=== PATIENT | female | born 1980 | race American Indian/Alaskan Native ===

== ENCOUNTER 2018-03-17 07:31 | Emergency (ER) | payer OTHER ==
[2018-03-17 07:36] VITALS: TEMP 98.2; O2SAT 100
--- NOTE | 2018-03-17 07:53 | C.PDOC ---
History Of Present Illness 37-year-old female, presents to the emergency department with complaints of chest soreness, that is constant and worse with movement and deep breaths. patient states she has a Hx of "tachycardia" and is on Labetalol. 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 She denies cough, fever, palpitations, shortness of breath or any other associated symptoms. No other complaints at this time. Time Seen by Provider: 03/17/18 07:43 Chief Complaint (Nursing): Chest Pain History Per: Patient History/Exam Limitations: no limitations Current Symptoms Are (Timing): Still Present Past Medical History Reviewed: Historical Data, Nursing Documentation, Vital Signs Vital Signs: Last Vital Signs Temp 98.2 F 03/17/18 07:35 Pulse 82 03/17/18 09:48 Resp 16 03/17/18 09:48 BP 127/78 03/17/18 09:48 Pulse Ox 100 03/17/18 09:48 Family History: States: No Known Family Hx Physical Exam - Physical Exam Appears: Non-toxic, No Acute Distress Skin: Warm, Dry, No Rash Head: Normacephalic Eye(s): bilateral: PERRL Nose: Normal Oral Mucosa: Moist Lips: Normal Appearing Neck: Normal ROM Chest: Symmetrical Cardiovascular: Rhythm Irregular (Occasional), No Murmur Respiratory: Normal Breath Sounds, No Accessory Muscle Use Extremity: Normal ROM, No Deformity, No Swelling ED Course And Treatment - Laboratory Results Result Diagrams: 03/17/18 08:15 03/17/18 08:15 O2 Sat by Pulse Oximetry: 100 (RA) Pulse Ox Interpretation: Normal Disposition Counseled Patient/Family Regarding: Studies Performed, Diagnosis, Need For Followup - Disposition Referrals: [facility] at [facility] [Outside] Kwaku Oseguera MD [Staff Provider] - Disposition: HOME/ ROUTINE Disposition Time: 09:30 Condition: STABLE Additional Instructions: 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 I have reviewed the chart and agree that the record accurately reflects my personal performance of the history, physical exam, medical decision making, and the department course for this patient. I have also personally directed, reviewed, and agree with the discharge instructions and disposition.
[2018-03-17 08:30] LABS: BASO # 0.1 K/uL (0.0-0.2); BASO % 2.4 % (0.0-2.0); EOS # 0.2 K/uL (0.0-0.7); EOS % 4.4 % (0.0-4.0); HEMOGLOBIN 10.5 g/dL (11.0-16.0); LYMPH # 1.3 K/uL (1.0-4.3); LYMPH % 37.2 % (20.0-40.0); MEAN CELL VOLUME 69.9 fL (81.0-99.0); MEAN CORPUSCULAR HEMOGLOBIN 22.6 pg (27.0-31.0); MEAN CORPUSCULAR HGB CONC 32.3 g/dL (33.0-37.0); MEAN PLATELET VOLUME 11.9 fL (7.2-11.7); MONO # 0.5 K/uL (0.0-0.8); MONO % 12.9 % (0.0-10.0); NEUT # 1.5 K/uL (1.8-7.0); NEUT % 43.1 % (50.0-75.0); NRBC % 0.1 % (0.0-2.0); RBC 4.65 Mil/uL (3.80-5.20); RED CELL DISTRIBUTION WIDTH 14.5 % (11.5-14.5); WHITE BLOOD COUNT 3.5 K/uL (4.8-10.8)
[2018-03-17 08:38] LABS: ALB/GLOB RATIO 1.3 (1.0-2.1); ALBUMIN 4.1 g/dL (3.5-5.0); ALT/SGPT 19 U/L (9-52); AST/SGOT 23 U/L (14-36); BLOOD UREA NITROGEN 5 mg/dL (7-17); GFR AFRICAN-AMERICAN > 60; GFR NON-AFRICAN AMERICAN > 60
[2018-03-17 08:52] LABS: CK-MB < 0.22 ng/mL (0.0-3.38)
[2018-03-17 09:18] LABS: HCG,QUALITATIVE URINE NEGATIVE (NEGATIVE)
[2018-03-17 09:24] LABS: SQUAMOUS EPITHIAL 1 /hpf (0-5); URINE BILIRUBIN NEGATIVE (NEGATIVE); URINE BLOOD NEGATIVE (NEGATIVE); URINE CLARITY Clear (Clear); URINE COLOR Yellow (YELLOW); URINE GLUCOSE (UA) NORMAL (Normal); URINE LEUKOCYTE ESTERASE NEG Leu/uL (Negative); URINE PROTEIN NEGATIVE (NEGATIVE); URINE UROBILINOGEN NORMAL mg/dL (0.2-1.0)
--- NOTE | 2018-03-17 09:36 | RAD ---
PROCEDURE: CHEST RADIOGRAPH, 1 VIEW HISTORY: cp COMPARISON: None available. FINDINGS: LUNGS: Clear. PLEURA: No pneumothorax or pleural fluid seen. CARDIOVASCULAR: Normal. OSSEOUS STRUCTURES: No significant abnormalities. VISUALIZED UPPER ABDOMEN: Normal. OTHER FINDINGS: None. IMPRESSION: No active disease.
[2018-03-17 09:49] VITALS: BP 127/78; PULSE 82; RESP 16
--- NOTE | 2018-03-18 22:41 | CARD ---
APPROVED REPORT EKG Measurement Heart [id number] <Conclusion> Sinus rhythm with occasional premature ventricular complexes Otherwise normal ECG
== END 2018-03-17 09:49 | disposition home or self-care (01) ==
LOC: C.ER 07:31
DX: R00.2 Palpitations (principal); R07.9 Chest pain, unspecified

== ENCOUNTER 2018-04-01 02:11 | Emergency (ER) | payer OTHER ==
[2018-04-01 02:19] VITALS: RESP 20; TEMP 99.6
--- NOTE | 2018-04-01 02:47 | C.PDOC ---
History Of Present Illness 37 year old female presents to the ER with a complaint of a nonproductive cough and congestion for the past few days. Denies fever or chills. Chief Complaint (Nursing): Cough, Cold, Congestion History Per: Patient History/Exam Limitations: no limitations Onset/Duration Of Symptoms: Days Location Of Pain: None Sick Contacts (Context): None Associated Symptoms: Cough, Nasal Congestion. denies: Fever, Sputum Recent travel outside of the [place]: No Past Medical History Reviewed: Historical Data, Nursing Documentation, Vital Signs Vital Signs: Last Vital Signs Temp 99.6 F 04/01/18 02:55 Pulse 103 H 04/01/18 02:55 Resp 20 04/01/18 02:55 BP 124/81 04/01/18 02:55 Pulse Ox 98 04/01/18 03:03 - Medical History PMH: Cardia Arrhythmia, HTN Family History: States: Unknown Family Hx - Social History Hx Alcohol Use: No Hx Substance Use: No - Immunization History Hx Tetanus Toxoid Vaccination: No Hx Influenza Vaccination: No Hx Pneumococcal Vaccination: No Review Of Systems Constitutional: Negative for: Fever, Chills ENT: Positive for: Nose Congestion Respiratory: Positive for: Cough. Negative for: Sputum Skin: Negative for: Rash Physical Exam - Physical Exam Appears: Non-toxic, No Acute Distress Skin: Normal Color, Warm, Dry Head: Atraumatic, Normacephalic Eye(s): bilateral: Normal Inspection Ear(s): Bilateral: Normal Nose: Normal Oral Mucosa: Moist Throat: Normal, No Erythema, No Exudate Chest: Symmetrical, No Tenderness Cardiovascular: Rhythm Regular Respiratory: No Rales, No Rhonchi, No Wheezing, Other (Harsh breath sounds) Gastrointestinal/Abdominal: Soft, No Tenderness Neurological/Psych: Oriented x3, Normal Speech ED Course And Treatment O2 Sat by Pulse Oximetry: 98 (room air) Pulse Ox Interpretation: Normal Progress Note: Phenergan and zithromax administered. Disposition Counseled Patient/Family Regarding: Diagnosis - Disposition Referrals: [facility] at [facility] [Outside] Disposition: HOME/ ROUTINE Disposition Time: 02:43 Condition: STABLE Prescriptions: Azithromycin [Z-Jason] 250 mg PO DAILY #6 tab Promethazine DM [Phenergan DM Syrup] 5 ml PO TID #120 ml Instructions: Upper Respiratory Infection (ED) Forms: [employer] (Upper Sorbian) - POA Present On Arrival: None - Clinical Impression Clinical Impression: Upper respiratory infection - Scribe Statement The provider has reviewed the documentation as recorded by the Scribe Ranjan Mayen All medical record entries made by the Scribe were at my direction and personally dictated by me. I have reviewed the chart and agree that the record accurately reflects my personal performance of the history, physical exam, medical decision making, and the department course for this patient. I have also personally directed, reviewed, and agree with the discharge instructions and disposition.
[2018-04-01 02:56] VITALS: BP 124/81; PULSE 103
[2018-04-01 03:04] VITALS: O2SAT 98
[2018-04-01] MEDS ORDERED: Promethazine DM 6.25 mg-15 mg/5 ml Syrup PO STA (03:04)
[2018-04-01] MEDS ORDERED: Promethazine DM 6.25 mg-15 mg/5 ml Syrup ONE (03:07)
== END 2018-04-01 03:12 | disposition home or self-care (01) ==
LOC: C.ER 02:11
DX: J06.9 Acute upper respiratory infection, unspecified (principal); I10 Essential (primary) hypertension

== ENCOUNTER 2018-10-16 20:30 | Emergency (ER) | payer OTHER ==
[2018-10-16 20:39] VITALS: BP 121/84; PULSE 108; RESP 20; TEMP 98.7; O2SAT 98
--- NOTE | 2018-10-16 21:00 | C.PDOC ---
History Of Present Illness 37 year old female presents to the ED complaining of nonproductive cough for one week. Denies any associated fever, chest congestion, pain, shortenss of breath, or dyspnea on exertion. Reports recent URI, now resolved. Denies any improvement with OTC medications. Denies history of smoking or asthma. 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 S/O RECENT URI NOW RESOLVED. DRY, NO FEVER CHEST NELSON, PAIN, MATTHEWS/SOB. NO IMPROVE W OTC MEDS. 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 denies: Fever, Chills, Nasal Congestion Ear Symptoms: Bilateral: None Past Medical History Reviewed: Historical Data, Nursing Documentation, Vital Signs Vital Signs: Last Vital Signs Temp 98.7 F 10/16/18 20:32 Pulse 108 H 10/16/18 20:32 Resp 20 10/16/18 20:32 BP 121/84 10/16/18 20:32 Pulse Ox 98 10/16/18 20:32 - Medical History PMH: Cardia Arrhythmia, HTN Denies: Chronic Kidney Disease Surgical History: Family History: States: No Known Family Hx - Social History Hx Alcohol Use: No Hx Substance Use: No - Immunization History Hx Tetanus Toxoid Vaccination: No Hx Influenza Vaccination: No Hx Pneumococcal Vaccination: No Review Of Systems Constitutional: Negative for: Fever, Chills ENT: Negative for: Nose Congestion, Throat Pain Respiratory: Positive for: Cough. Negative for: Shortness of Breath, SOB with Excertion Physical Exam - Physical Exam Appears: Non-toxic, No Acute Distress Skin: Warm, Dry, Rash Head: Normacephalic Eye(s): bilateral: Normal Inspection Ear(s): Bilateral: Normal Nose: Normal Oral Mucosa: Moist Neck: Supple Chest: Symmetrical Cardiovascular: Rhythm Regular Respiratory: Normal Breath Sounds, No Rales, No Rhonchi, No Wheezing Gastrointestinal/Abdominal: Soft, No Tenderness Extremity: Normal ROM Neurological/Psych: Oriented x3, Normal Speech Gait: Steady ED Course And Treatment O2 Sat by Pulse Oximetry: 98 (RA) Pulse Ox Interpretation: Normal Medical Decision Making Medical Decision Making: Plan - Tessalon 200mg PO On re-examination, patient is resting comfortably in no acute distress. Patient reports improvement of symptoms. Patient given follow up instructions. Instructed to return to ER if symptoms worsen or new symptoms arise. Disposition Counseled Patient/Family Regarding: Diagnosis, Need For Followup, Rx Given - Disposition Referrals: [facility] [Outside] [facility] [Outside] Disposition: HOME/ ROUTINE Disposition Time: 20:58 Condition: IMPROVED Prescriptions: Azithromycin 250 mg PO DAILY #6 tab Benzonatate [Tessalon Perles] 200 mg PO TID PRN #15 sgl PRN Reason: Cough Instructions: Cough, Adult (DC) Forms: [facility] (Spanish), Work Excuse - Clinical Impression Clinical Impression: Cough - Scribe Statement The provider has reviewed the documentation as recorded by the Scribe Anuradha Jane All medical record entries made by the Scribe were at my direction and personally dictated by me. I have reviewed the chart and agree that the record accurately reflects my personal performance of the history, physical exam, medical decision making, and the department course for this patient. I have also personally directed, reviewed, and agree with the discharge instructions and disposition.
== END 2018-10-16 21:10 | disposition home or self-care (01) ==
LOC: C.ER 20:30
DX: R05 Cough (principal); I10 Essential (primary) hypertension

== ENCOUNTER 2019-01-12 22:16 | Emergency (ER) | payer OTHER ==
[2019-01-12 22:41] VITALS: BP 119/82
[2019-01-12] MEDS ORDERED: Acetaminophen-Codeine 300/30 mg Tab PO STA (23:15)
--- NOTE | 2019-01-12 23:19 | C.PDOC ---
History Of Present Illness 38 year old female presents with dry cough for the past 4 days. Patient reports she had URI which has been improving except for a persistent cough for which she has taken dimetapp, robitussin, and theraflu. She also reports now developing a herpes blister to her lower lip this morning. Denies other complaints at this time. Time Seen by Provider: 01/12/19 22:59 Chief Complaint (Nursing): Flu-like Symptoms History Per: Patient History/Exam Limitations: no limitations Onset/Duration Of Symptoms: Days (x4) Current Symptoms Are (Timing): Still Present Associated Symptoms: Cough, Other (Herpes blister) Ear Symptoms: Bilateral: None Recent travel outside of the [place]: No Past Medical History Reviewed: Historical Data, Nursing Documentation, Vital Signs Vital Signs: Last Vital Signs Temp 100.1 F H 01/12/19 22:36 Pulse 123 H 01/12/19 22:36 Resp 20 01/12/19 22:36 BP 119/82 01/12/19 22:36 Pulse Ox 95 01/12/19 22:36 - Medical History PMH: Cardia Arrhythmia, HTN Denies: Chronic Kidney Disease Surgical History: Family History: States: Unknown Family Hx - Social History Hx Alcohol Use: No Hx Substance Use: No - Immunization History Hx Tetanus Toxoid Vaccination: No Hx Influenza Vaccination: No Hx Pneumococcal Vaccination: No Review Of Systems Constitutional: Negative for: Fever, Chills Eyes: Negative for: Pain, Redness ENT: Positive for: Other (Herpes blister on lower lip). Negative for: Mouth Swelling Cardiovascular: Negative for: Chest Pain, Palpitations Respiratory: Positive for: Cough. Negative for: Shortness of Breath Gastrointestinal: Negative for: Nausea, Vomiting, Diarrhea Genitourinary: Negative for: Dysuria, Hematuria Musculoskeletal: Negative for: Back Pain Skin: Negative for: Rash Neurological: Negative for: Weakness, Numbness Physical Exam - Physical Exam Appears: Well, Non-toxic, No Acute Distress Skin: Normal Color, Warm, No Rash Head: Atraumatic, Normacephalic Eye(s): bilateral: Normal Inspection, PERRL, EOMI Ear(s): Bilateral: Normal Nose: Discharge (Clear), Other (Enlarged turbinates, post nasal drip) Oral Mucosa: Moist Lips: Other (Lesion forming on lower lip, no vesicle) Throat: Normal (No swelling or injection), No Exudate Neck: Normal ROM, Supple Chest: Symmetrical Respiratory: No Accessory Muscle Use, Other (Normal inspiratory effort) Gastrointestinal/Abdominal: Soft, No Distention Neurological/Psych: Oriented x3, Normal Speech, Normal Cranial Nerves (Grossly intact) ED Course And Treatment O2 Sat by Pulse Oximetry: 95 (Room air) Pulse Ox Interpretation: Normal Disposition Counseled Patient/Family Regarding: Diagnosis, Need For Followup, Rx Given - Disposition Disposition: HOME/ ROUTINE Disposition Time: 23:27 Condition: STABLE Prescriptions: Albuterol HFA [Ventolin HFA 90 mcg/actuation (8 g)] 2 puff IH [id number] #1 inhaler Acetaminophen/Codeine [Tylenol/Codeine 300 MG/30 MG] 1 tab PO Q6H #16 tab Cetirizine HCl/Pseudoephedrine [Zyrtec-D Tablet] 1 each PO DAILY #14 tab.er.12h Valacyclovir HCl [Valacyclovir] 2,000 mg PO ONCE #4 tablet Instructions: Cold Sores (Oral Herpes), Acute Bronchitis, Adult (DC) Forms: General Discharge Instructions, [facility] (Bahamian), Work Excuse - Clinical Impression Clinical Impression: Bronchitis, acute, Herpes labialis without complication
[2019-01-12] MEDS ORDERED: Acetaminophen-Codeine 300/30 mg Tab PO ONE (23:21)
[2019-01-12 23:29] VITALS: PULSE 97; RESP 19; TEMP 97.9
[2019-01-13 02:25] VITALS: O2SAT 95
== END 2019-01-12 23:45 | disposition home or self-care (01) ==
LOC: C.ER 22:16
DX: J20.9 Acute bronchitis, unspecified (principal); B00.1 Herpesviral vesicular dermatitis

== ENCOUNTER 2019-02-15 18:21 | Emergency (ER) | payer OTHER ==
[2019-02-15 18:43] VITALS: RESP 20; O2SAT 98
[2019-02-15] MEDS ORDERED: guaiFENesin DM 200 mg-20 mg/10 ml UD PO STA (19:25)
[2019-02-15] MEDS ORDERED: guaiFENesin 200 mg/10 ml Syrup UD ONE (19:31)
[2019-02-15 19:38] VITALS: BP 126/88; PULSE 98; TEMP 98.3
--- NOTE | 2019-02-15 19:39 | C.PDOC ---
History Of Present Illness 38 y/o female presents to the ER complaining of dry cough and itchy throat which has been present for the past 2 days. Patient states that she has been taking care of her sick daughter who now has cough for 2 days.Patient denies having fever,chills, headache,dizziness,CP,SOB,nausea, and vomiting. Chief Complaint (Nursing): Cough, Cold, Congestion History Per: Patient History/Exam Limitations: no limitations Onset/Duration Of Symptoms: Days Current Symptoms Are (Timing): Still Present Severity: Moderate Past Medical History Reviewed: Historical Data, Nursing Documentation, Vital Signs Vital Signs: Last Vital Signs Temp 99.2 F 02/15/19 18:39 Pulse 117 H 02/15/19 18:39 Resp 20 02/15/19 18:39 BP 127/93 H 02/15/19 18:39 Pulse Ox 98 02/15/19 18:39 - Medical History PMH: Cardia Arrhythmia (??? not sure of name), HTN Denies: Chronic Kidney Disease Surgical History: Family History: States: No Known Family Hx - Social History Hx Alcohol Use: No Hx Substance Use: No - Immunization History Hx Tetanus Toxoid Vaccination: No Hx Influenza Vaccination: No Hx Pneumococcal Vaccination: No Review Of Systems Constitutional: Negative for: Fever, Chills Cardiovascular: Negative for: Chest Pain Respiratory: Positive for: Cough. Negative for: Shortness of Breath Gastrointestinal: Negative for: Nausea, Vomiting Neurological: Negative for: Headache, Dizziness Physical Exam - Physical Exam Appears: Non-toxic, No Acute Distress Skin: Normal Color, Warm, Dry Head: Atraumatic, Normacephalic Eye(s): bilateral: Normal Inspection Nose: Normal Oral Mucosa: Moist Throat: Normal, No Erythema, No Exudate Neck: Supple Chest: Symmetrical Cardiovascular: Rhythm Regular Respiratory: Normal Breath Sounds, No Rales, No Rhonchi, No Wheezing Gastrointestinal/Abdominal: Normal Exam, Soft, No Tenderness, No Guarding, No Rebound Neurological/Psych: Oriented x3, Normal Speech ED Course And Treatment O2 Sat by Pulse Oximetry: 98 (RA) Pulse Ox Interpretation: Normal Medical Decision Making Medical Decision Making: Plan:--Tessalon Perles PO ordered but patient states it hasn't worked in the past for previous URI --Robitussin PO given -- patient is stable for discharge Disposition Counseled Patient/Family Regarding: Diagnosis, Need For Followup, Rx Given - Disposition Referrals: [facility] [Outside] Disposition: HOME/ ROUTINE Disposition Time: 19:35 Condition: STABLE Additional Instructions: Continue cough medicine every 4 hours as needed Rest and Hydration Follow up with PMD Return to ED if symptoms owrsen Prescriptions: Guaifenesin/Dextromethorphan [Robitussin Cough-Chest Dm Liq] 5 ml PO Q4 PRN #1 bottle PRN Reason: Cough Instructions: Viral Upper Respiratory Infection, Adult (DC) Forms: [employer] (Mohawk) - Clinical Impression Clinical Impression: Viral URI with cough - 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 - Scribe Statement The provider has reviewed the documentation as recorded by the Kinza Frances Provider Attestation All medical record entries made by the Jacquieibjeannette were at my direction and personally dictated by me. I have reviewed the chart and agree that the record accurately reflects my personal performance of the history, physical exam, medical decision making, and the department course for this patient. I have also personally directed, reviewed, and agree with the discharge instructions and disposition.
== END 2019-02-15 19:52 | disposition home or self-care (01) ==
LOC: C.ER 18:21
DX: J06.9 Acute upper respiratory infection, unspecified (principal); R05 Cough